=== PATIENT | female | born 1995 | race Caucasian/White ===

== ENCOUNTER 2021-05-07 13:38 | Emergency (ER) | payer MEDICAID ==
[~2021-05-07] VITALS: Ht 157.5 cm; Wt 61.7 kg
[2021-05-07 13:51] VITALS: BP 150/85
--- NOTE | 2021-05-07 14:25 | NUR ---
PT WAS TAKEN TO XRAY VIA WHEELCHAIR
--- NOTE | 2021-05-07 14:29 | NUR ---
PT BACK FROM XRAY
[2021-05-07] MEDS ORDERED: KETOROLAC 30 MG/ML VIAL IM ONE (14:55)
[2021-05-07] MEDS ORDERED: NAPR-54 PO (14:55)
[2021-05-07] MEDS ORDERED: METH-1681 PO (14:55)
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
[2021-05-07 15:34] VITALS: BP 150/85
--- NOTE | 2021-05-07 15:35 | NUR ---
Patient discharged with v/s stable. Written and verbal after care instructions given and explained. Patient alert, oriented and verbalized understanding of instructions. Ambulatory with steady gait. All questions addressed prior to discharge. ID band removed. Patient advised to follow up with PMD. Rx of METHOCARBAMOL, NAPROXEN given. Patient educated on indication of medication including possible reaction and side effects. Opportunity to ask questions provided and answered.
== END 2021-05-07 15:35 | disposition home or self-care (01) ==
LOC: MED 13:38
DX: S20.211A Contusion of right front wall of thorax, initial encounter (principal); X50.9XXA Other and unspecified overexertion or strenuous movements or postures, initial encounter; Y93.89 Activity, other specified; Y92.89 Other specified places as the place of occurrence of the external cause; Y99.8 Other external cause status
CPT/HCPCS: 71100; 96372; 99283; J1885